=== PATIENT | female | born 1995 | race Caucasian/White ===

== ENCOUNTER 2022-09-19 16:06 | Outpatient (CLI) | payer BC, SELFPAY ==
[2022-09-19 17:26] LABS: Potassium* 3.9 mmol/L (3.6-5.1)
== END 2022-09-19 16:07 | disposition home or self-care (01) ==
LOC: FBOREF 16:09
PROVIDERS: PCP Family Medicine; Visit Provider Family Medicine
DX: N92.6 Irregular menstruation, unspecified (principal)
CPT/HCPCS: 84132

== ENCOUNTER 2024-10-08 15:53 | Outpatient (CLI) | payer OTHER, SELFPAY ==
[2024-10-08 16:45] LABS: Clue Cells No Clue Cells Seen (None Seen); Trichomonas No Trichomonas Seen (None Seen); Yeast No Yeast Seen (None Seen)
[2024-10-10 17:58] LABS: HPV Source Cervical; HPV, High Risk by TMA Detected
[2024-10-11 15:12] LABS: HPV Genotype 16 by TMA Not Detected; HPV Genotype 18/45 by TMA Not Detected; HPVG Source Cervical
== END 2024-10-08 15:54 | disposition home or self-care (01) ==
PROVIDERS: PCP Family Medicine; Visit Provider Family Medicine
DX: Z00.00 Encounter for general adult medical examination without abnormal findings (principal); N89.8 Other specified noninflammatory disorders of vagina; Z12.4 Encounter for screening for malignant neoplasm of cervix
CPT/HCPCS: 87210; 87624; 87625; 88141; 88142

== ENCOUNTER 2025-10-13 15:57 | Outpatient (CLI) | payer OTHER, SELFPAY ==
[2025-10-15 14:59] LABS: HPV Source Cervix
[2025-10-21 10:45] LABS: Pap Test Digital Imaging Done
== END 2025-10-13 15:58 | disposition home or self-care (01) ==
PROVIDERS: PCP Family Medicine; Visit Provider Family Medicine
DX: Z12.4 Encounter for screening for malignant neoplasm of cervix (principal)
CPT/HCPCS: 87624; 87625; 88141; 88142; 88175